=== PATIENT | female | born 1985 | race Two or more races ===

== ENCOUNTER 2021-05-02 18:20 | Emergency (ER) | payer MEDICAID ==
[~2021-05-02] VITALS: Ht 154.9 cm; Wt 138.8 kg
[2021-05-02 18:21] VITALS: BP 127/88
[2021-05-02 19:16] LABS: Urine Bacteria FEW /hpf (None Seen); Urine Blood Negative /uL (Negative); Urine Mucus FEW (None Seen); Urine Specific Gravity 1.035 (1.001-1.035); Urine WBC 107 /hpf (0 - 5)
[2021-05-02 19:27] LABS: Amphetamine Screen, Urine NEGATIVE (NEGATIVE); Barbiturate Scree,Urine NEGATIVE (NEGATIVE); Benzodiazephine Screen, Urine NEGATIVE (NEGATIVE); Cannabinoid Screen, Urine POSITIVE (NEGATIVE); Cocaine Screen, Urine NEGATIVE (NEGATIVE); Opiate Scree,Urine NEGATIVE (NEGATIVE); Phencyclidine Screen, Urine NEGATIVE (NEGATIVE)
[2021-05-02 20:37] LABS: Albumin 3.6 g/dL (3.4-5.0); BUN/Creatinine Ratio 17.1; Calcium 9.5 mg/dL (8.5-10.1); Potassium 3.9 mmol/L (3.5-5.1)
[2021-05-02 20:40] LABS: Bilirubin, Total 0.8 mg/dL (0.2-1.0); Total Protein 8.3 g/dL (6.4-8.2)
== END 2021-05-02 22:46 | disposition left against medical advice (07) ==
LOC: ER 18:20
DX: F41.9 Anxiety disorder, unspecified (principal); Z53.21 Procedure and treatment not carried out due to patient leaving prior to being seen by health care provider
CPT/HCPCS: 36415; 80053; 80307; 81001; 81025

== ENCOUNTER 2023-03-05 14:43 | Emergency (ER) | payer MEDICAID ==
[~2023-03-05] VITALS: Ht 154.9 cm; Wt 138.0 kg
[2023-03-05 15:30] LABS: Basophils # (auto) 0.1 10 ^3/uL (0-0.2); Basophils % (auto) 0.7 % (0.0-2.0); Eosinophils # (auto) 0.1 10 ^3/uL (0-0.8); Eosinophils % (auto) 0.8 % (0.0-7.0); Hematocrit 42.9 % (36.0-46.0); Hemoglobin 14.3 g/dL (12.2-16.2); Lymphocytes % (auto) 16.7 % (10.0-50.0); Mean Corpuscular Hemoglobin 28.3 pg (28.0-32.0); Mean Corpuscular Hgb Conc. 33.3 g/dL (32.0-36.0); Monocytes # (auto) 0.5 10 ^3/uL (0-1.3); Monocytes % (auto) 4.2 % (0.0-12.0); Neutrophils # (auto) 9.1 10 ^3/uL (1.6-8.6); Neutrophils % (auto) 77.6 % (37.0-80.0); Red Blood Cells 5.05 10^6/uL (4.0-5.20); Red Cell Distribution Width 14.5 % (11.8-14.3); White Blood Cell 11.7 10^3/uL (4.4-10.8)
[2023-03-05 15:40] LABS: Urine Bacteria NONE SEEN /hpf (None Seen); Urine Blood 3+ /uL (Negative); Urine Mucus FEW (None Seen); Urine Specific Gravity 1.022 (1.001-1.035); Urine WBC 143 /hpf (0 - 5)
[2023-03-05 16:00] LABS: Albumin 3.7 g/dL (3.4-5.0); BUN/Creatinine Ratio 16.9 (10.0-20.0); Bilirubin, Total 1.4 mg/dL (0.2-1.0); Calcium 8.9 mg/dL (8.5-10.1); Total Protein 7.2 g/dL (6.4-8.2)
[2023-03-05] MEDS ORDERED: CEPH500C PO (17:51)
[2023-03-05] MEDS ORDERED: cefTRIAXone SOD 1,000 MG VL IM ONE (18:00)
[2023-03-05 18:07] VITALS: BP 118/78; PULSE 77; RESP 20; TEMP 98.2; O2SAT 98
== END 2023-03-05 18:10 | disposition home or self-care (01) ==
LOC: ER 14:43
DX: N93.8 Other specified abnormal uterine and vaginal bleeding (principal); N39.0 Urinary tract infection, site not specified; Z79.899 Other long term (current) drug therapy; Z88.6 Allergy status to analgesic agent
CPT/HCPCS: 36415; 76830; 76856; 80053; 81001; 84702; 85025; 86900; 86901; 96372; 99285; J0696

== ENCOUNTER 2024-05-15 20:05 | Emergency (ER) | payer MEDICAID ==
[~2024-05-15] VITALS: Ht 157.5 cm; Wt 154.6 kg
[~2024-05-15 20:05] MED LIST: CEPH500C PO
[2024-05-15 20:55] LABS: Basophils # (auto) 0.1 10 ^3/uL (0-0.2); Basophils % (auto) 0.6 % (0.0-2.0); Eosinophils # (auto) 0.1 10 ^3/uL (0-0.8); Eosinophils % (auto) 1.2 % (0.0-7.0); Hematocrit 41.1 % (36.0-46.0); Hemoglobin 13.7 g/dL (12.2-16.2); Lymphocytes # (auto) 2.5 10 ^3/uL (0.4-5.4); Lymphocytes % (auto) 20.6 % (10.0-50.0); Mean Corpuscular Hemoglobin 28.3 pg (28.0-32.0); Mean Corpuscular Hgb Conc. 33.4 g/dL (32.0-36.0); Mean Corpuscular Volume 84.6 fL (80.0-100.0); Monocytes # (auto) 0.6 10 ^3/uL (0-1.3); Monocytes % (auto) 5.3 % (0.0-12.0); Neutrophils # (auto) 8.8 10 ^3/uL (1.6-8.6); Neutrophils % (auto) 72.3 % (37.0-80.0); Nucleated Red Blood Cells % 0.1 %; Platelet Count (auto) 295 10^3/uL (140-450); Red Blood Cells 4.86 10^6/uL (4.0-5.20); Red Cell Distribution Width 14.6 % (11.8-14.3); White Blood Cell 12.2 10^3/uL (4.4-10.8)
[2024-05-15 21:08] LABS: Chloride 105 mmol/L (98-107); Potassium 3.7 mmol/L (3.5-5.1); Sodium 141 mmol/L (136-145)
[2024-05-15 21:09] LABS: Anion Gap 7 (5-15); Carbon Dioxide 29 mmol/L (20-31)
[2024-05-15 21:10] LABS: Calcium 9.6 mg/dL (8.7-10.4)
[2024-05-15 21:14] LABS: Glucose 94 mg/dL (74-106)
[2024-05-15 21:15] LABS: BUN/Creatinine Ratio 12.7 (10.0-20.0); Blood Urea Nitrogen 9 mg/dL (9-23)
[2024-05-15 21:21] LABS: Urine Bacteria None Seen /hpf (None Seen); Urine Blood Negative /uL (Negative); Urine Clarity Turbid (Clear); Urine Color Yellow (Yellow); Urine Protein, UAD 1+ (Negative); Urine Specific Gravity 1.043 (1.001-1.035); Urine Urobilinogen 3 mg/dL (Negative); Urine WBC None Seen /hpf (0 - 5)
[2024-05-15] MEDS ORDERED: CIPR-173 PO (21:29)
[2024-05-16] MEDS: SODIUM CHLORIDE 0.9% 1,000 ML IV ONE (00:57)
[2024-05-16 01:03] VITALS: BP 111/49; PULSE 73; RESP 16; O2SAT 99
== END 2024-05-16 01:04 | disposition home or self-care (01) ==
LOC: ER 20:05
DX: O23.41 Unspecified infection of urinary tract in pregnancy, first trimester (principal); N39.0 Urinary tract infection, site not specified; D72.829 Elevated white blood cell count, unspecified; Z88.6 Allergy status to analgesic agent; Z3A.01 Less than 8 weeks gestation of pregnancy
CPT/HCPCS: 36415; 80048; 81001; 81025; 82010; 82962; 85025

== ENCOUNTER 2024-10-21 09:20 | Observation (INO) | payer MEDICAID ==
[~2024-10-21] VITALS: Ht 154.9 cm; Wt 163.3 kg
[~2024-10-21 09:20] MED LIST changes: +CIPR-173 PO
--- NOTE | 2024-10-21 11:03 | DVH ---
LIMITED OB ULTRASOUND > 14 WKS: HISTORY: Status post fall injury. TECHNIQUE: Multiple real-time grayscale images of the gravid uterus with duplex Doppler color flow an d M-mode spectral analysis. COMPARISON: None for this . FINDINGS: IUP single live fetus at 34 weeks 4 days based on composite averages of the BPD, head circumference, abdominal circumference and femur length. Difficult to obtained measurements due to movem ent. Estimated weight 2697 grams. heart rate 153 beats per minute. LORENA 21.09 cm Cervix is not visualized. Cephalic presentation Grade 3 placenta without previa or abruption, in anterior position. IMPRESSION: 1. IUP single live fetus at 34 weeks 4 days AUA corresponding to an ABEL of 11/28/2024. 2. Examination is limited due to body habitus and movement during the examination.
[2024-10-21] MEDS ORDERED: INSLANTI SC (11:15)
[2024-10-21] MEDS ORDERED: PREN-96 PO (11:15)
[2024-10-21] MEDS ORDERED: INSLISPI SC (11:15)
[2024-10-21] MEDS ORDERED: DIPH25CA66 PO (11:17)
[2024-10-21] MEDS ORDERED: SERT-206 PO (11:19)
[2024-10-21] MEDS ORDERED: DOCU-94 PO (11:19)
[2024-10-21] MEDS ORDERED: FERR-7 PO (11:19)
[2024-10-21] MEDS ORDERED: ASPI-498 OR (11:23)
[2024-10-21] MEDS ORDERED: LORA-622 PO (11:23)
[2024-10-21] MEDS ORDERED: ALBU108A5 IN (11:23)
--- NOTE | 2024-10-21 11:27 | DVHDS2 ---
Physician Discharge Progress N Final Diagnosis: iup at 30wks s/p fall ,dec kovement ,morbid obesity,gdm Operations or Procedures: Operations or Procedures nst,sono 30wks Condition on Discharge: Good Disposition: Home Discharge Instructions: Diet: Consistent carbohydrate Activity: No Restrictions, As Tolerated Medications: na Follow Up Care: Specialist: 2d Discharge Statement: "Patient was advised to return to the ER or call 911 if any headaches, dizziness, shortness of breath, chest pain, abdominal pain, bleeding, fevers, or worsening of medical condition. Patient was counseled about treatment plan, medications, possible side effects, patientverbalized understanding. All questions were answered to the best of my ability. This discharge took greater then 30 minutes in planning, reviewing documentation, counseling the patient, and discussing with other team members." Visit Coding OBGYN Date of Service: Oct 21, 2024 Billing Provider: EARL MCBRIDE DO HEEL TRIMMER Common Visit Codes: 77246-[id number] INP/OBS CARE (HIGH) HEEL TRIMMER Procedure Codes: 71675-76- NON-STRESS TEST EARL MCBRIDE DO Oct 21, 2024 11:27
[2024-10-21] MEDS ORDERED: InsuLIN REG 1unit/0.01ml Soln (100units/ml) ONE (11:36)
[2024-10-21] MEDS: InsuLIN REG 1unit/0.01ml Soln (100units/ml) SC ONE (11:42)
== END 2024-10-21 12:20 | disposition home or self-care (01) ==
LOC: UNDOADMOB 09:20 → LDRP 09:20 → UNDODISOB 12:20
PROVIDERS: ADMIT Obstetrics & Gynecology; ATTEND Obstetrics & Gynecology
DX: O36.8130 Decreased fetal movements, third trimester, not applicable or unspecified (principal); O24.419 Gestational diabetes mellitus in pregnancy, unspecified control; O99.213 Obesity complicating pregnancy, third trimester; E66.01 Morbid (severe) obesity due to excess calories; Z98.890 Other specified postprocedural states; Z79.899 Other long term (current) drug therapy; Z3A.30 30 weeks gestation of pregnancy
CPT/HCPCS: 59025; 76805; 81002; 82962; 96372; G0378; J1815

== ENCOUNTER 2025-01-19 07:42 | Emergency (ER) | payer MEDICAID ==
[~2025-01-19] VITALS: Ht 154.9 cm; Wt 156.3 kg
[~2025-01-19 07:42] MED LIST changes: +ALBU108A5 IN; +ASPI-498 OR; +DIPH25CA66 PO; +DOCU-94 PO; +FERR-7 PO; +INSLANTI SC; +INSLISPI SC; +LORA-622 PO; +PREN-96 PO; +SERT-206 PO
--- NOTE | 2025-01-19 08:13 | ED.PDOC ---
GI ASSESSMENT HPI Comments 39 year old female presents to the ED with a chief complaint of abdominal pain onset 1 month. Patient states she had vaginal 1 month ago, since then has been experiencing intermittent abdominal pain as well as nausea/diarrhea. Patient is also experiencing vaginal pressure. Denies any PMHx as well as headache, dizziness, dysuria, hematuria, hematemesis, chest pain. No other symptoms or modifying factors present at this time. Chief Complaint: Abdominal Pain Time Seen by MD: 08:05 Primary Care Provider: NONE Reviewed Notes: Medications, Allergies Allergies: Coded Allergies: Ibuprofen (Verified Allergy, Severe, 05/02/21) Home Meds Active Scripts Ciprofloxacin Hcl (Cipro) 500 Mg Tab, 1 TAB PO BID, #14 TAB Prov:HERMELINDO RIVERA MD 05/15/24 Cephalexin Monohydrate (Cephalexin) 500 Mg Cap, 1 CAP PO QID for 10 Days, #40 CAP Prov:OSCAR XIE MECHANICAL PRODUCT ENGINEER 03/05/23 Reported Medications Albuterol Sulfate (Albuterol Sulfate Hfa) 108 Mcg/Act Aer, 90 MCG IN, AER 10/21/24 Loratadine (Claritin) 10 Mg Tab, 1 TAB PO DAILY, #30 TAB 5 Refills 10/21/24 Aspirin (ASPIRIN 81) 81 Mg Tab, 81 MG OR, TAB //25 Docusate Sodium (Colace) 100 Mg Cap, 100 MG PO BID, CAP //25 Ferrous Sulfate (Iron) 325 Mg Tab, 325 MG PO, TAB //25 Sertraline Hcl (Sertraline Hcl) 50 Mg Tab, 50 MG PO BID for 30 Days, MG //25 Diphenhydramine Hcl (Benadryl Allergy) 25 Mg Cap, 25 MG PO Q6HP PRN for FOR ITCHING, CAP //25 Insulin Lispro (Human) (Humalog) 100 Unit/Ml Inj, 18 UNIT SC AC, INJ //25 Insulin Glargine (Lantus) 100 Unit/Ml Inj, 44 UNIT SC BID, INJ //25 Vit W/ Ferrous Fumara ( One Daily) Daily Tab, 1 TAB PO DAILY, #90 TAB 3 Refills 10/21/24 Information Source: Patient Mode of Arrival: Ambulatory Timing: Months Duration: Since onset Prehospital treatment: None Quality: Sharp Severity: Moderate Recent: None Recent Hx of: None Pain Location: Diffuse Modifying Factors: Nothing Associated sign and symptoms: Nausea, Diarrhea, Abdominal Pain Past Medical History PAST MEDICAL HISTORY: Denies Surgical History: Denies all surgeries FORMULATION TECHNICIAN History: No Pertinent FORMULATION TECHNICIAN History Family History Family History: Reviewed,noncontributory to illness Social History Smoker: Non-Smoker Alcohol: Denies ETOH Use Drugs: Denies Drug Use Lives In: Home Constitutional: denies: chills, diaphoresis, fatigue, fever, malaise, sweats, weakness, others EENTM: denies: blurred vision, double vision, ear bleeding, ear discharge, ear drainage, ear pain, ear ringing, eye pain, eye redness, hearing loss, mouth pain, mouth swelling, nasal discharge, nose bleeding, nose congestion, nose pain, photophobia, tearing, throat pain, throat swelling, voice changes, others Respiratory: denies: cough, hemoptysis, orthopnea, SOB at rest, shortness of breath, SOB with excertion, stridor, wheezing, others Cardiovascular: denies: chest pain, dizzy spells, diaphoresis, Dyspnea on exertion, edema, irregular heart beat, left arm pain, lightheadedness, palpitations, PND, syncope, others Gastrointestinal: reports: abdominal pain, diarrhea, nausea; denies: abdomen d istended, blood streaked bowels, constipated, dysphagia, difficulty swallowing, hematemesis, melena, poor appetite, poor fluid intake, rectal bleeding, rectal pain, vomiting, others Genitourinary: denies: abnormal vagina bleeding, burning, dyspareunia, dysuria, flank pain, frequency, hematuria, incontinence, pain, , vagina discharge, urgency, others Neurological: denies: dizziness, fainting, headache, left sided numbness, left sided weakness, numbness, paresthesia, pre-existing deficit, right sided numbness, right sided weakness, seizure, speech problems, tingling, tremors, weakness, others Musculoskeletal: denies: back pain, gout, joint pain, joint swelling, muscle pain, muscle stiffness, neck pain, others Integumetry: denies: bruises, change in color, change in hair/nails, dryness, laceration, lesions, lumps, rash, wounds, others Allergic/Immunocompromised: denies: Difficulty Healing, Frequent Infections, Hives, Itching, others Hematologic/Lymphatic: denies: anemia, blood clots, easy bleeding, easy bruising, swollen glands, others Endocrine: denies: excessive hunger, excessive sweating, excessive thirst, excessive urination, flushing, intolerance to cold, intolerance to heat, unexplained weight gain, unexplained weight loss, others Psychiatric: denies: anxiety, bipolar disorder, depression, hopeless, panic disorder, schizophrenia, sleepless, suicidal, others All Other Systems: Reviewed and Negative Physical Exam General Appearance: Moderate Distress, Obese HEENT: Normal ENT Inspection, Pharynx Normal, TMs Normal Neck: Full Range of Motion, Non-Tender, Normal, Normal Inspection Respiratory: Chest Non-Tender, Lungs Clear, No Accessory Muscle Use, No Respiratory Distress, Normal Breath Sounds Cardiovascular: No Edema, No JVD, No Murmur, No Gallop, Normal Peripheral Pulses, Regular Rate/Rhythm Breast Exam: Deferred Gastrointestinal: No Organomegaly, Non Tender, No Pulsatile Mass, Normal Bowel Sounds, Soft Genitalia: Deferred Pelvic: Deferred Rectal: Deferred Extremities: No calf tenderness, Normal capillary refill, Normal inspection, Normal range of motion, Non-tender, No pedal edema Musculoskeletal : Apperance: Normal Neurologic: Alert, business services director II-XII nml as Tested, No Motor Deficits, Normal Affect, Normal Mood, No Sensory Deficits Cerebellar Function: Normal Reflexes: Normal Skin: Dry, Normal Color, Warm Peripheral Pulses: 3+ Radial (R), 3+ Radial (L) Lymphatic: No Adenopathy Was a procedure done? Was a procedure done?: No GI differential Dx Differential Diagnosis: Constipation, Diverticular disease, Esophagitis, Gastritis/PUD, Gastroenteritis X-Ray, Labs, Meds, VS Vital Signs Date Time Temp Pulse Resp B/P (MAP) Pulse Ox O2 Delivery O2 Flow Rate FiO2 01/19/25 07:56 97.6 85 16 136/83 (100) 100 97.6 Lab Test 01/19/25 08:45 01/19/25 08:17 Range/Units Urine Color Light-yellow Yellow Urine Clarity Turbid H Clear Urine pH 6.0 5.0-9.0 Urine Specific [place] 1.023 1.001-1.035 Urine Protein Trace H Negative Urine Ketones Negative Negative Urine Blood Negative Negative /uL Urine Nitrite Negative Negative Urine Bilirubin Negative Negative Urine Urobilinogen Normal Negative mg/dL Urine Leukocyte Esterase 2+ Negative /uL Urine RBC 2 0 - 4 /hpf Urine Microscopic WBC 6 H 0-5 /HPF Urine Squamous Epithelial Cells Mod <5 /hpf Urine Bacteria Few H None Seen /hpf Urine Mucus Few None Seen Urine Glucose Normal Normal mg/dL Sodium Level 137 136-145 mmol/L Potassium Level 4.2 3.5-5.1 mmol/L Chloride Level 101 98-107 mmol/L Carbon Dioxide Level 28 20-31 mmol/L Anion Gap 8 5-15 Blood Urea Nitrogen 16 9-23 mg/dL Creatinine 0.71 0.550-1.02 mg/dL Glomerular Filtration Rate Calc 112 >90 mL/min BUN/Creatinine Ratio 22.5 H 10.0-20.0 Serum Glucose 219 H 74-106 mg/dL Calcium Level 9.4 8.7-10.4 mg/dL Patient alert. No sign of distress. Urinalysis shows UTI. Vitals stable. Answering questions. She is obese. Blood sugar slightly elevated. Urinalysis shows UTI. Was given prescription of Macrobid antibiotic. Explained to the patient that she will need to drink plenty of fluids that she has urinary tract infection. Was told to follow up with her primary care physician. Was told to come back if there is any problem. Time of 1ST Reevaluation: 08:35 Reevaluation 1ST: Unchanged Patient Education/Counseling: Diagnosis, Treatment, Prognosis Family Education/Counseling: No Family Present Departure 1 Departure Time of Disposition: 10:29 Impression: Primary Impression: Uncontrolled diabetes mellitus Qualified Codes: E13.65 - Other specified diabetes mellitus with hyperglycemia Additional Impression: UTI (urinary tract infection) Qualified Codes: N30.00 - Acute cystitis without hematuria Disposition: 01 HOME / SELF CARE / HOMELESS Condition: Good e-Prescriptions Nitrofurantoin Monohydrate Mac (Macrobid) 100 Mg Cap 100 MG PO BID for 7 Days, #14 CAP Prov: MARKIE WRIGHT MD 01/19/25 Discharged With: Self Critical Care Note Critical Care Time?: No Stability Stability form required: No Heart Score Heart Score: Heart Score Response (Comments) Value History N/A 0 EKG N/A 0 Age N/A 0 Risk Factors N/A 0 Troponin N/A 0 Total 0 I personally scribed for MARKIE WRIGHT MD ([email or web address]) on 01/19/25 at 08:12. Electronically submitted by Valorie Sloan ([email or web address]). MARKIE WRIGHT MD Jan 19, 2025 08:12
[2025-01-19 08:41] LABS: Chloride 101 mmol/L (98-107); Potassium 4.2 mmol/L (3.5-5.1); Sodium 137 mmol/L (136-145)
[2025-01-19 08:42] LABS: Anion Gap 8 (5-15); Carbon Dioxide 28 mmol/L (20-31)
[2025-01-19 08:43] LABS: Calcium 9.4 mg/dL (8.7-10.4)
[2025-01-19 08:48] LABS: BUN/Creatinine Ratio 22.5 (10.0-20.0); Blood Urea Nitrogen 16 mg/dL (9-23)
[2025-01-19 08:49] LABS: Glucose 219 mg/dL (74-106)
[2025-01-19 09:05] LABS: Urine Bacteria FEW /hpf (None Seen); Urine Blood Negative /uL (Negative); Urine Clarity Turbid (Clear); Urine Color Light-Yellow (Yellow); Urine Mucus FEW (None Seen); Urine Protein, UAD TRACE (Negative); Urine Specific Gravity 1.023 (1.001-1.035); Urine Squamous Epithelial Cell MOD /hpf (<5); Urine Urobilinogen Normal (Negative); Urine WBC 6 /HPF (0-5)
[2025-01-19] MEDS ORDERED: NITR-87 PO (10:29)
[2025-01-19 10:35] VITALS: BP 125/90; PULSE 85; RESP 18; TEMP 98; O2SAT 100
== END 2025-01-19 10:42 | disposition home or self-care (01) ==
LOC: ER 07:42
DX: N39.0 Urinary tract infection, site not specified (principal); E11.65 Type 2 diabetes mellitus with hyperglycemia; Z79.82 Long term (current) use of aspirin; Z79.899 Other long term (current) drug therapy; Z88.6 Allergy status to analgesic agent
CPT/HCPCS: 36415; 80048; 81001

== ENCOUNTER 2025-02-04 20:56 | Emergency (ER) | payer MEDICAID ==
[~2025-02-04] VITALS: Ht 154.9 cm; Wt 157.7 kg
[~2025-02-04 20:56] MED LIST changes: +NITR-87 PO
[2025-02-04] MEDS ORDERED: ACETAMINOPHEN 325 MG TAB PO ONE (21:15)
[2025-02-04] MEDS ORDERED: traMADol HCL 50 MG TAB PO ONE (21:15)
--- NOTE | 2025-02-04 21:17 | ED.PDOC ---
General HPI Comments 39-year-old female who came to ER for abdominal pain. Patient was seen here 2 weeks ago, diagnosed with urinary tract infection and uncontrolled diabetes. Was sent home with Macrobid. Patient followed up with her primary care provider, was given another set of medications for her UTI and fatty liver. Patient however still manifests with lower back pains, nausea, dysuria, urinary frequency, and vaginal discharge. Patient also complaining of periumbilical pain due to her hernia. Chief Complaint: Abdominal pain Time Seen by MD: 21:16 Primary Care Provider: NONE Reviewed notes: Nurses Notes Allergies: Coded Allergies: Ibuprofen (Verified Allergy, Severe, 05/02/21) Home Meds Active Scripts Nitrofurantoin Monohydrate Mac (Macrobid) 100 Mg Cap, 100 MG PO BID for 7 Days, #14 CAP Prov:MARKIE WRIGHT MD 01/19/25 Ciprofloxacin Hcl (Cipro) 500 Mg Tab, 1 TAB PO BID, #14 TAB Prov:HERMELINDO RIVERA MD 05/15/24 Cephalexin Monohydrate (Cephalexin) 500 Mg Cap, 1 CAP PO QID for 10 Days, #40 CAP Prov:OSCAR XIE SUPPLEMENTAL NURSE 03/05/23 Reported Medications Albuterol Sulfate (Albuterol Sulfate Hfa) 108 Mcg/Act Aer, 90 MCG IN, AER 10/21/24 Loratadine (Claritin) 10 Mg Tab, 1 TAB PO DAILY, #30 TAB 5 Refills 10/21/24 Aspirin (ASPIRIN 81) 81 Mg Tab, 81 MG OR, TAB 10/21/24 Docusate Sodium (Colace) 100 Mg Cap, 100 MG PO BID, CAP 10/21/24 Ferrous Sulfate (Iron) 325 Mg Tab, 325 MG PO, TAB 10/21/24 Sertraline Hcl (Sertraline Hcl) 50 Mg Tab, 50 MG PO BID for 30 Days, MG 10/21/24 Diphenhydramine Hcl (Benadryl Allergy) 25 Mg Cap, 25 MG PO Q6HP PRN for FOR ITCHING, CAP 10/21/24 Insulin Lispro (Human) (Humalog) 100 Unit/Ml Inj, 18 UNIT SC AC, INJ 10/21/24 Insulin Glargine (Lantus) 100 Unit/Ml Inj, 44 UNIT SC BID, INJ 10/21/24 Vit W/ Ferrous Fumara ( One Daily) Daily Tab, 1 TAB PO DAILY, #90 TAB 3 Refills 10/21/24 Information Source: Patient Mode of Arrival: Ambulatory Severity: Moderate Inability to void: None Timing: Weeks Duration: Intermittent Has not urinated for: Minutes Onset: Spontaneous Symptoms: Dysuria, Frequency History of: UTI Location: Other (Lower back) associated signs and symptoms: Abdominal Pain, Nausea, Back Pain, Dysuria, Frequency Review of Systems REVIEW OF SYSTEMS: No fever, no chills, or fatigue HEENT: No sore throat, no earache, no congestion, no neck pain. Cardiac: No chest pain. No palpitations. Lungs: No shortness of breath, no cough. GI: No nausea, no vomiting, no diarrhea, no constipation, no abdominal pain : (+) dysuria, (+) frequency, or urgency. No hematuria. Musculoskeletal: No joint pain , no joint swelling, no extremity edema. (+) lower back pain Skin: No rash, no itching. Neuro: No headache, no dizziness, no weakness Vital Signs Vital Signs Date Time Temp Pulse Resp B/P (MAP) Pulse Ox O2 Delivery O2 Flow Rate FiO2 02/04/25 22:14 98.0 99 17 124/71 (88) 97 98.0 Physical Exam General: Awake, alert and oriented. No acute distress. Skin: Skin in warm, dry and intact without rashes or lesions. HEENT: The head is normocephalic and atraumatic. Conjunctivae are clear without exudates or hemorrhage. Sclera is non-icteric. Neck: Normal range of motion. No JVD. Cardiac: Regular rate Respiratory: No signs of respiratory distress. No Stridor. Abdomen: Positive umbilical hernia, reducible : No CVA tenderness Neurological: The patient is awake, alert and oriented to person, place, and time with normal speech. Speech is clear. There is no facial asymmetry. Psychiatric: Appropriate mood and affect. Good judgement and insight. Past Medical History PAST MEDICAL HISTORY: DM, Liver, UTI'S Past Medical History (Other): Umbilical hernia Surgical History: Denies all surgeries AIR CONDITIONING INSTALLER History: No Pertinent AIR CONDITIONING INSTALLER History Family History Family History: Reviewed,noncontributory to illness Social History Smoker: Non-Smoker Alcohol: Denies ETOH Use Drugs: Denies Drug Use Lives In: Home Was a procedure done? Was a procedure done?: No Differential Diagnosis Kidney stone (Female): Pyelonephritis, Renal failure, Strain, Urinary obstruction, Urolithiasis, Other (Hernia) Urinary Problem (Female): Pyelonephritis, Urinary retention, Urolithiasis, UTI, Vaginitis X-Ray, Labs, Meds, VS Vital Signs Date Time Temp Pulse Resp B/P (MAP) Pulse Ox O2 Delivery O2 Flow Rate FiO2 02/04/25 22:14 98.0 99 17 124/71 (88) 97 98.0 02/04/25 21:18 98.1 103 16 147/92 (110) 98 98.1 Lab Test 02/04/25 21:59 Range/Units Urine Color Yellow Yellow Urine Clarity Clear Clear Urine pH 5.5 5.0-9.0 Urine Specific [place] 1.022 1.001-1.035 Urine Protein 1+ H Negative Urine Ketones Negative Negative Urine Blood 1+ H Negative /uL Urine Nitrite Negative Negative Urine Bilirubin Negative Negative Urine Urobilinogen Normal Negative mg/dL Urine Leukocyte Esterase Trace Negative /uL Urine RBC 1 0 - 4 /hpf Urine Microscopic WBC 4 0-5 /HPF Urine Squamous Epithelial Cells Few <5 /hpf Urine Bacteria None seen None Seen /hpf Urine Mucus Few None Seen Urine Glucose Normal Normal mg/dL Urine Test Negative Negative Time of 1ST Reevaluation: 21:12 Reevaluation 1ST: Unchanged Patient Education/Counseling: Need For Follow Up Family Education/Counseling: No Family Present SEPSIS Sepsis Screen Physician Orders Urine Bacterial Culture (02/04/25 21:10) Vital Signs Date Time Temp Pulse Resp B/P (MAP) Pulse Ox O2 Delivery O2 Flow Rate FiO2 02/04/25 22:14 98.0 99 17 124/71 (88) 97 98.0 02/04/25 21:18 98.1 103 16 147/92 (110) 98 98.1 Departure 1 Departure Time of Disposition: 23:09 Impression: Primary Impression: Lower urinary tract symptoms Disposition: 01 HOME / SELF CARE / HOMELESS Condition: Stable Additional Instructions: ED DISCHARGE INSTRUCTIONS Instructions: Please read all instructions provided in this packet carefully. Although you have been discharged from the Emergency Department, this does not mean that you have a "clean bill of health". No definitive diagnosis for your symptoms has been made today. It is possible that you are in the process of developing a serious illness. This is why you must return to the ED without fail if any new or worsening symptoms (especially if your symptoms include chest pain, trouble breathing, abdominal pain, fever, headache, confusion, trouble seeing, or trouble walking) It is also very important that you see a primary care doctor within the next 3-5 days to follow up. If you are unable to get an appointment, return to the ED for re-evaluation. Abdominal Pain: Care Instructions Overview Abdominal pain has many possible causes. Some aren't serious and get better on their own in a few days. Others need more testing and treatment. If your pain continues or gets worse, you need to be rechecked and may need more tests to find out what is wrong. You may need surgery to correct the problem. Don't ignore new symptoms, such as fever, nausea and vomiting, urination problems, pain that gets worse, and dizziness. These may be signs of a more serious problem. If you are not getting better, you may need more tests or treatment. The doctor has checked you carefully, but problems can develop later. If you notice any problems or new symptoms, get medical treatment right away. Follow-up care is a vital part of your treatment and safety. Be sure to make and go to all appointments, and call your doctor if you are having problems. It's also a good idea to know your test results and keep a list of the medicines you take. How can you care for yourself at home? Rest until you feel better. To prevent dehydration, drink plenty of fluids. Choose water and other clear liquids until you feel better. If you have kidney, heart, or liver disease and have to limit fluids, talk with your doctor before you increase the amount of fluids you drink. When you feel like eating, start with small amounts. Do not have alcohol, caffeine, or spicy, hot, or high-fat foods for a day or two. Avoid anti-inflammatory medicines such as aspirin, ibuprofen (Advil, Motrin), and naproxen (Aleve). These can cause stomach upset. Talk to your doctor if you take daily aspirin for another health problem. When should you call for help? Call 911 anytime you think you may need emergency care. For example, call if: You passed out (lost consciousness). You pass maroon or very bloody stools. You vomit blood or what looks like coffee grounds. You have severe belly pain. Call your doctor now or seek immediate medical care if: Your pain gets worse, especially if it becomes focused in one area of your belly. You have a new or higher fever. Your stools are black and look like tar, or they have streaks of blood. You have unexpected vaginal bleeding. You have symptoms of a urinary tract infection. These may include: Pain when you urinate. Urinating more often than usual. Blood in your urine. You are dizzy or lightheaded, or you feel like you may faint. Watch closely for changes in your health, and be sure to contact your doctor if: You are not getting better as expected. Credits for Abdominal Pain: Care Instructions Current as of: June 06, 2023 Author: [employer] Staff Clinical Review Board All [employer] education is reviewed by a team that includes physicians, nurses, advanced practitioners, registered dieticians, and other healthcare professiona ls. Comments Patient well-appearing, nontoxic. Advised prompt follow-up with PCP, return to the ED with any new, worsening or concerning symptoms. I reviewed the following notes from the pt's past medical encounters: N/A The following tests were ordered, and results were reviewed by me: (See diagnostic results section) The following test were independently interpreted by me: N/A Additional information was gathered from interviewing the following independent historians: N/A I reviewed and agreed with the following test results read by other providers: N/A I discussed treatments and results with patient Decision regarding hospitalization or escalation of hospital level of care: Risks and benefits of admission for further treatment of patient's condition was considered however due to patient's stable condition patient will be discharged to follow up closely or return to care for worsening of condition or inability to follow up. Critical Care Note Critical Care Time?: No Stability Stability form required: No Heart Score Heart Score: Heart Score Response (Comments) Value History N/A 0 EKG N/A 0 Age N/A 0 Risk Factors N/A 0 Troponin N/A 0 Total 0 I personally scribed for ARY BUTT MD ([email or web address]) on 02/04/25 at 21:17. Electronically submitted by Jt Luna ([facility]). ARY BUTT MD Feb 04, 2025 21:17
[2025-02-04 22:13] LABS: Urine Bacteria None Seen /hpf (None Seen)
[2025-02-04 22:14] VITALS: BP 124/71; PULSE 99; RESP 17; TEMP 98; O2SAT 97
[2025-02-04 22:29] LABS: Urine Blood 1+ /uL (Negative); Urine Clarity Clear (Clear); Urine Color Yellow (Yellow); Urine Mucus FEW (None Seen); Urine Protein, UAD 1+ (Negative); Urine Specific Gravity 1.022 (1.001-1.035); Urine Squamous Epithelial Cell FEW /hpf (<5); Urine Urobilinogen Normal (Negative); Urine WBC 4 /HPF (0-5); Urine pH 5.5 (5.0-9.0)
== END 2025-02-04 23:40 | disposition home or self-care (01) ==
LOC: ER 21:01
DX: R35.0 Frequency of micturition (principal); R30.0 Dysuria; R11.0 Nausea; M54.50 Low back pain, unspecified; E11.9 Type 2 diabetes mellitus without complications; Z98.890 Other specified postprocedural states; Z79.82 Long term (current) use of aspirin; Z79.899 Other long term (current) drug therapy; Z87.440 Personal history of urinary (tract) infections; Z88.6 Allergy status to analgesic agent
CPT/HCPCS: 81001; 81025; 87086

== ENCOUNTER 2025-08-12 12:46 | Emergency (ER) | payer MEDICAID ==
[~2025-08-12] VITALS: Ht 157.5 cm; Wt 148.1 kg
--- NOTE | 2025-08-12 14:27 | ED.PDOC ---
Jed. trauma (HPI) HPI Comments A 39 YEAR OLD FEMALE PRESENTS TO THE ED WITH COMPLAINT OF UMBILICAL HERNIA PAIN STATUS POST FALL. PATIENT STATES SHE HAS A HISTORY OF AN UMBILICAL HERNIA FOR THE PAST 6 YEARS AND ACCIDENTALLY TRIPPED AND FELL 2 DAYS AGO AND HIT HER UMBILICAL REGION THE GROUND. PATIENT REPORTS SHE IS NOW EXPERIENCING UMBILICAL REGION ABDOMINAL PAIN AND WOULD LIKE TO MAKE SURE THERE IS NOTHING WRONG WITH HER UMBILICAL HERNIA. PATIENT DENIES HEAD INJURY, NECK INJURY, LOC, FEVER, CHILLS, SHORTNESS OF BREATH, CHEST PAIN, NAUSEA, VOMITING, HEADACHE, OR OTHER COMPLAINTS. NO OTHER SYMPTOMS OR MODIFYING FACTORS AT THIS TIME. PATIENT IS ALERT, ORIENTED X 4, AND HAS STEADY GAIT. . Chief Complaint: Abdominal Pain Time Seen by MD: 13:02 Primary Care Provider: NONE Reviewed notes: Nurses Notes, Medications, Allergies Allergies: Coded Allergies: Ibuprofen (Verified Allergy, Severe, 05/02/21) Home Meds Active Scripts Tramadol HCl (Tramadol HCl) 50 Mg Tab, 50 MG PO BID, #20 TAB Prov:SUE PAYTON 08/12/25 Nitrofurantoin Monohydrate Mac (Macrobid) 100 Mg Cap, 100 MG PO BID for 7 Days, #14 CAP Prov:MAKRIE WRIGHT MD 01/19/25 Ciprofloxacin Hcl (Cipro) 500 Mg Tab, 1 TAB PO BID, #14 TAB Prov:HERMELINDO RIVERA MD 05/15/24 Cephalexin Monohydrate (Cephalexin) 500 Mg Cap, 1 CAP PO QID for 10 Days, #40 CAP Prov:OSCAR XIE LEGAL LIBRARIAN 03/05/23 Reported Medications Albuterol Sulfate (Albuterol Sulfate Hfa) 108 Mcg/Act Aer, 90 MCG IN, AER 10/21/24 Loratadine (Claritin) 10 Mg Tab, 1 TAB PO DAILY, #30 TAB 5 Refills 10/21/24 Aspirin (ASPIRIN 81) 81 Mg Tab, 81 MG OR, TAB 10/21/24 Docusate Sodium (Colace) 100 Mg Cap, 100 MG PO BID, CAP 10/21/24 Ferrous Sulfate (Iron) 325 Mg Tab, 325 MG PO, TAB 10/21/24 Sertraline Hcl (Sertraline Hcl) 50 Mg Tab, 50 MG PO BID for 30 Days, MG // Diphenhydramine Hcl (Benadryl Allergy) 25 Mg Cap, 25 MG PO Q6HP PRN for FOR ITCHING, CAP 10/21/24 Insulin Lispro (Human) (Humalog) 100 Unit/Ml Inj, 18 UNIT SC AC, INJ 10/21/24 Insulin Glargine (Lantus) 100 Unit/Ml Inj, 44 UNIT SC BID, INJ 10/21/24 Vit W/ Ferrous Fumara ( One Daily) Daily Tab, 1 TAB PO DAILY, #90 TAB 3 Refills 10/21/24 Information Source: Patient Mode of Arrival: Ambulatory Severity: Moderate Timing: Days Duration: Since onset, Days Prehospital treatment: None Location: Abdominal Location of laceration: None Mechanism: Fall Associated signs and symtoms: None Past Medical History PAST MEDICAL HISTORY: DM, Liver, UTI'S Past Medical History (Other): UMBILICAL HERNIA Surgical History: Denies all surgeries P[employer] WORKER History: No Pertinent P[employer] WORKER History Family History Family History: Reviewed,noncontributory to illness Social History Smoker: Non-Smoker Alcohol: Denies ETOH Use Drugs: Denies Drug Use Lives In: Home Constitutional: denies: chills, diaphoresis, fatigue, fever, malaise, sweats, weakness, others EENTM: denies: blurred vision, double vision, ear bleeding, ear discharge, ear drainage, ear pain, ear ringing, eye pain, eye redness, hearing loss, mouth pain, mouth swelling, nasal discharge, nose bleeding, nose congestion, nose pain, photophobia, tearing, throat pain, throat swelling, voice changes, others Respiratory: denies: cough, hemoptysis, orthopnea, SOB at rest, shortness of breath, SOB with excertion, stridor, wheezing, others Cardiovascular: denies: chest pain, dizzy spells, diaphoresis, Dyspnea on exertion, edema, irregular heart beat, left arm pain, lightheadedness, palpitations, PND, syncope, others Gastrointestinal: reports: abdominal pain; denies: abdomen distended, blood streaked bowels, constipated, diarrhea, dysphagia, difficulty swallowing, hematemesis, melena, nausea, poor appetite, poor fluid intake, rectal bleeding, rectal pain, vomiting, others Genitourinary: denies: abnormal vagina bleeding, burning, dyspareunia, dysuria, flank pain, frequency, hematuria, incontinence, pain, , vagina discharge, urgency, others Neurological: denies: dizziness, fainting, headache, left sided numbness, left sided weakness, numbness, paresthesia, pre-existing deficit, right sided num bness, right sided weakness, seizure, speech problems, tingling, tremors, weakness, others Musculoskeletal: denies: back pain, gout, joint pain, joint swelling, muscle pain, muscle stiffness, neck pain, others Integumetry: denies: bruises, change in color, change in hair/nails, dryness, laceration, lesions, lumps, rash, wounds, others Allergic/Immunocompromised: denies: Difficulty Healing, Frequent Infections, Hives, Itching, others Hematologic/Lymphatic: denies: anemia, blood clots, easy bleeding, easy bruising, swollen glands, others Psychiatric: denies: anxiety, bipolar disorder, depression, hopeless, panic disorder, schizophrenia, sleepless, suicidal, others All Other Systems: Reviewed and Negative Physical Exam General Appearance: No Apparent Distress, Obese HEENT: Normal ENT Inspection, PERRL/EOMI, Pharynx Normal, TMs Normal Neck: Full Range of Motion, Non-Tender, Normal, Normal Inspection Respiratory: Chest Non-Tender, Lungs Clear, No Accessory Muscle Use, No Respiratory Distress, Normal Breath Sounds Cardiovascular: No Edema, No JVD, No Murmur, No Gallop, Normal Peripheral Pulses, Regular Rate/Rhythm Breast Exam: Deferred Gastrointestinal: Hernia (REDUCIBLE UMBILICAL HERNIA NOTED. NO STRANGULATION.), No Organomegaly, No Pulsatile Mass, Normal Bowel Sounds, Soft, Tenderness (UMBILICAL REGION WITH UMBILICAL HERNIA. NO GUARDING AND REBOUND TENDERNESS. ) Genitalia: Deferred Pelvic: Deferred Rectal: Deferred Extremities: No calf tenderness, Normal capillary refill, Normal inspection, Normal range of motion, Non-tender, No pedal edema Musculoskeletal : Apperance: Normal Neurologic: Alert, roof promenade tile setter II-XII nml as Tested, No Motor Deficits, Normal Affect, Normal Mood, No Sensory Deficits Cerebellar Function: Normal Reflexes: Normal Skin: Dry, Normal Color, Warm Peripheral Pulses: 2+ carotid (R), 2+ carotid (L) Lymphatic: No Adenopathy Was a procedure done? Was a procedure done?: No Differential Diagnosis Multiple Trauma: Intraabdominal Injury, Abrasions, Contusion, Hematoma, Other (UMBILICAL HERNIA, BOWEL OBSTRUCTION) Neck Injury: N/A X-Ray, Labs, Meds, VS Vital Signs Date Time Temp Pulse Resp B/P (MAP) Pulse Ox O2 Delivery O2 Flow Rate FiO2 08/12/25 12:53 98.0 86 18 144/96 99 98.0 Lab Test 08/12/25 16:00 08/12/25 15:52 08/12/25 02:00 Range/Units White Blood Count 9.3 4.4-10.8 10^3/uL Red Blood Count 5.26 H 4.0-5.20 10^6/uL Hemoglobin 15.1 12.2-16.2 g/dL Hematocrit 44.6 36.0-46.0 % Mean Corpuscular Volume 84.8 80.0-100.0 fL Mean Corpuscular Hemoglobin 28.7 28.0-32.0 pg Mean Corpuscular Hemoglobin Concent 33.9 32.0-36.0 g/dL Red Cell Distribution Width 13.7 11.8-14.3 % Platelet Count 282 140-450 10^3/uL Mean Platelet Volume 9.9 6.9-10.8 fL Neutrophils (%) (Auto) 68.2 37.0-80.0 % Lymphocytes (%) (Auto) 23.9 10.0-50.0 % Monocytes (%) (Auto) 5.0 0.0-12.0 % Eosinophils (%) (Auto) 1.7 0.0-7.0 % Basophils (%) (Auto) 1.2 0.0-2.0 % Neutrophils # (Auto) 6.4 1.6-8.6 10 ^3/uL Lymphocytes # (Auto) 2.2 0.4-5.4 10 ^3/uL Monocytes # (Auto) 0.5 0-1.3 10 ^3/uL Eosinophils # (Auto) 0.2 0-0.8 10 ^3/uL Basophils # (Auto) 0.1 0-0.2 10 ^3/uL Nucleated Red Blood Cells 0.1 % Sodium Level 136 136-145 mmol/L Potassium Level 4.1 3.5-5.1 mmol/L Chloride Level 100 98-107 mmol/L Carbon Dioxide Level 27 20-31 mmol/L Anion Gap 9 5-15 Blood Urea Nitrogen 9 9-23 mg/dL Creatinine 0.84 0.550-1.02 mg/dL Glomerular Filtration Rate Calc 92 >90 mL/min BUN/Creatinine Ratio 10.7 10.0-20.0 Serum Glucose 420 *H 74-106 mg/dL Calcium Level 9.2 8.7-10.4 mg/dL POC Glucose 440 *H 70-106 mg/dl Urine Color Yellow Yellow Urine Clarity Clear Clear Urine pH 5.5 5.0-9.0 Urine Specific [place] 1.037 H 1.001-1.035 Urine Protein Negative Negative Urine Ketones Trace Negative Urine Blood Negative Negative /uL Urine Nitrite Negative Negative Urine Bilirubin Negative Negative Urine Urobilinogen Normal Negative mg/dL Urine Leukocyte Esterase Negative Negative /uL Urine RBC 1 0 - 4 /hpf Urine Microscopic WBC 1 0-5 /HPF Urine Squamous Epithelial Cells Mod <5 /hpf Urine Bacteria Few H None Seen /hpf Urine Glucose 4+ H Normal mg/dL Urine Test Negative Negative Current Medications Medications (Trade) Dose Ordered Sig/Go Route Start Time Stop Time Status Last Admin Sodium Chloride 1,000 ml @ 1,000 mls/hr Q1H ONCE IV 08/12/25 16:00 08/12/25 16:59 DC 08/12/25 16:30 Insulin Human Regular (InsuLIN R) 15 units ONCE ONCE IV 08/12/25 16:45 08/12/25 16:46 DC 08/12/25 16:42 Acetaminophen/ Hydrocodone Bitart ([place] 10/325MG Tab) 1 tab ONCE ONCE PO 08/12/25 17:15 08/12/25 17:16 DC 08/12/25 17:23 ORDERING PHYSICIAN: SUE PAYTON PROCEDURE(s): ABPL - CT AB PEL WO CON-NO ORAL OR IV REASON: UMBILICAL HERNIA PAIN POST FALL ORDER NUMBER(s): [id number], ACCESSION NUMBER(s): [id number] CLINICAL HISTORY: UMBILICAL HERNIA PAIN POST FALL TECHNIQUE: CT of the abdomen and pelvis was performed without contrast. This exam was performed according to our departmental dose optimization program. Up-to-date CT equipment and radiation dose reduction techniques are utilized as appropriate. WID: COMPARISON: US PELVIC on DOS: 03/05/23, US TRANSVAGINAL US NON OB on DOS: 03/05/23 FINDINGS: Lung bases: Unremarkable. Liver: The liver measures 26 cm. Severe hypoattenuation of the hepatic parenchym a. Gallbladder and bile ducts: Unremarkable. Spleen: Unremarkable. Pancreas: Unremarkable. Adrenals: Unremarkable. Kidneys and ureters: Unremarkable. Bowel: Unremarkable. Bladder: Unremarkable. Reproductive organs: Unremarkable. Lymph nodes: Unremarkable. Vessels: Unremarkable. Abdominal wall: 11 x 8 cm containing ventral abdominal hernia without significant inflammatory change or fluid. Bones: Unremarkable. Other: Unremarkable. IMPRESSION: 11 cm ventral fat containing umbilical /ventral abdominal hernia Severe fatty liver with hepatomegaly ATED BY: CHARLENE STODDARD MD DICTATED DATE/TIME: 08/12/251544 SIGNED BY: CHARLENE STODDARD MD SIGNED DATE/TIME: 08/12/251544 CC: X-Ray, Labs, Meds, VS Comment EXTERNAL MEDICAL RECORDS REVIEWED: [NONE] INDEPENDENT HISTORIANS: [NONE] SOCIAL DETERMINANTS OF HEALTH: [NONE] LABS ORDERED: URINE , UA, CBC, BMP REVIEWED AND INTERPRETED RESULTS: UGLU 4+, IMAGING ORDERED: CT ABD/PEL TREATMENTS ORDERED: NS 1 L IV, INSULIN 15 UNITS IV, [place]CO 10/325 MG PO PROCEDURES PERFORMED: NONE CRITICAL CARE TIME: NONE I HAVE DISCUSSED THE PATIENT WITH THE ATTENDING PHYSICIAN DR. WRIGHT AND HE AGREES WITH THE PATIENT'S PLAN OF CARE AND DISPOSITION. BASED ON HISTORY OF PRESENT ILLNESS, AND PHYSICAL EXAM, PATIENT WILL BE DIS CHARGED HOME. DISCUSSED PLAN FOR DISCHARGE HOME WITH RX [NORCO 10/325]. MEDICATION WARNINGS GIVEN. SHARED DECISION MAKING: PATIENT INSTRUCTED TO FOLLOW UP WITH PRIMARY CARE PROVIDER IN 1-2 DAYS FOR RE-EVALUATION OF SYMPTOMS. PATIENT VERBALIZES UNDERSTANDING TO RETURN TO ED FOR NEW OR WORSENING SYMPTOMS OR IF FOLLOW UP WITH PCP CANNOT BE OBTAINED. PATIENT FEELS COMFORTABLE GOING HOME AT THIS TIME. ALL QUESTIONS ADDRESSED AT TIME OF DISCHARGE. Images Reviewed?: Images reviewed and evaluated by me Time of 1ST Reevaluation: 18:00 Reevaluation 1ST: Improved Patient Education/Counseling: Diagnosis, Treatment, Need For Follow Up Family Education/Counseling: Diagnosis, Treatment, Need For Follow Up Medical Screening: No EMC Exist At This Time Departure 1 Departure Time of Disposition: 18:00 Impression: Primary Impression: Abdominal muscle strain Qualified Codes: S39.011A - Strain of muscle, fascia and tendon of abdomen, initial encounter Additional Impressions: Ventral hernia without obstruction or gangrene Uncontrolled diabetes mellitus Qualified Codes: E11.65 - Type 2 diabetes mellitus with hyperglycemia Noncompliance with medication regimen Disposition: HOME / SELF CARE / HOMELESS Condition: Stable Additional Instructions: FOLLOW-UP WITH PCP IN 1 TO 2 DAYS. TAKE MEDICATIONS PRESCRIBED. RETURN TO ED FOR ANY NEW OR WORSENING SYMPTOMS. e-Prescriptions Hydrocodone-Acetaminophen (Hydrocodone Bitartrate/AC 10-325 mg) 1 Tab Tab 1 TAB PO BID, #12 TAB Prov: SUE PAYTON 08/12/25 Discharged With: Self, Relative Critical Care Note Critical Care Time?: No Stability Stability form required: No I personally scribed for SUE PAYTON ([email or web address]) on 08/12/25 at 14:27. Elec tronically submitted by Kirt Shook ([email or web address]). I personally scribed for SUE PAYTON ([email or web address]) on 08/12/25 at 15:50. Elec tronically submitted by Kirt Shook ([email or web address]). I personally scribed for SUE PAYTON ([email or web address]) on 08/12/25 at 17:45. Elec tronically submitted by Kirt Shook ([email or web address]). SUE PAYTON Aug 12, 2025 14:27
[2025-08-12 14:33] LABS: Urine Protein, UAD Negative (Negative)
--- NOTE | 2025-08-12 15:46 | DVH ---
CLINICAL HISTORY: UMBILICAL HERNIA PAIN POST FALL TECHNIQUE: CT of the abdomen and pelvis was performed without contrast. This exam was performed according to our departmental dose optimization program. Up-to-date CT equipment and radiation dose reduction techniques are utilized as appropriate. WID: COMPARISON: US PELVIC on DOS: 03/05/23, US TRANSVAGINAL US NON OB on DOS: 03/05/23 FINDINGS: Lung bases: Unremarkable. Liver: The liver measures 26 cm. Severe hypoattenuation of the hepatic parenchyma. Gallbladder and bile ducts: Unremarkable. Spleen: Unremarkable. Pancreas: Unremarkable. Adrenals: Unremarkable. Kidneys and ureters: Unremarkable. Bowel: Unremarkable. Bladder: Unremarkable. Reproductive organs: Unremarkable. Lymph nodes: Unremarkable. Vessels: Unremarkable. Abdominal wall: 11 x 8 cm containing ventral abdominal hernia without significant inflammatory change or fluid. Bones: Unremarkable. Other: Unremarkable. IMPRESSION: 11 cm ventral fat containing umbilical /ventral abdominal hernia Severe fatty liver with hepatomegaly
[2025-08-12] MEDS ORDERED: TRAM-626 PO (15:53)
[2025-08-12 16:14] LABS: Hematocrit 44.6 % (36.0-46.0); Hemoglobin 15.1 g/dL (12.2-16.2); Mean Corpuscular Hemoglobin 28.7 pg (28.0-32.0); Mean Corpuscular Volume 84.8 fL (80.0-100.0); Nucleated Red Blood Cells % 0.1 %
[2025-08-12 16:20] LABS: Chloride 100 mmol/L (98-107); Potassium 4.1 mmol/L (3.5-5.1); Sodium 136 mmol/L (136-145)
[2025-08-12 16:21] LABS: Anion Gap 9 (5-15); Calcium 9.2 mg/dL (8.7-10.4); Carbon Dioxide 27 mmol/L (20-31)
[2025-08-12 16:26] LABS: BUN/Creatinine Ratio 10.7 (10.0-20.0); Blood Urea Nitrogen 9 mg/dL (9-23)
[2025-08-12] MEDS: SODIUM CHLORIDE 0.9% 1,000 ML IV ONE (16:30)
[2025-08-12 16:31] LABS: Glucose 420 mg/dL (74-106)
[2025-08-12] MEDS: InsuLIN REG 1unit/0.01ml Soln (100units/ml) IV ONE (16:42)
[2025-08-12] MEDS: HYDROcodone-ACET 10/325MG TAB PO ONE (17:23)
[2025-08-12] MEDS ORDERED: HYDR-4798 PO (17:57)
[2025-08-12 17:58] VITALS: BP 136/87; PULSE 78; RESP 16; TEMP 98.7; O2SAT 97
== END 2025-08-12 18:00 | disposition home or self-care (01) ==
LOC: ER 12:46
DX: S39.011A Strain of muscle, fascia and tendon of abdomen, initial encounter (principal); K43.9 Ventral hernia without obstruction or gangrene; E11.65 Type 2 diabetes mellitus with hyperglycemia; Z91.148 Patient's other noncompliance with medication regimen for other reason; Z88.6 Allergy status to analgesic agent; Z79.899 Other long term (current) drug therapy; W01.0XXA Fall on same level from slipping, tripping and stumbling without subsequent striking against object, initial encounter; Y93.89 Activity, other specified; Y92.89 Other specified places as the place of occurrence of the external cause; Y99.8 Other external cause status
CPT/HCPCS: 36415; 74176; 80048; 81001; 81025; 82947; 85025; 96361; 96374; 99285; J1815; J7030; 82962